=== PATIENT | male | born 1970 | race Caucasian/White ===

== ENCOUNTER 2016-05-28 12:58 | Emergency (ER) | payer SELFPAY ==
[~2016-05-28] VITALS: Ht 170.2 cm; Wt 75.0 kg
[2016-05-28] MEDS ORDERED: HYDROCODONE/ACETAMINOPHEN 5-325 MG TABLET PO ONE (13:30)
[2016-05-28 13:42] VITALS: BP 118/71
== END 2016-05-28 14:28 | disposition home or self-care (01) ==
LOC: EMS 13:00
DX: S43.101A Unspecified dislocation of right acromioclavicular joint, initial encounter (principal); M25.511 Pain in right shoulder; W17.89XA Other fall from one level to another, initial encounter; Y93.39 Activity, other involving climbing, rappelling and jumping off; Y92.9 Unspecified place or not applicable; Y99.9 Unspecified external cause status
CPT/HCPCS: 99284